=== PATIENT | male | born 1985 | race Hispanic/Latino ===

== ENCOUNTER 2021-03-27 18:47 | Inpatient (IN) | payer OTHER ==
[~2021-03-27] VITALS: Ht 170.2 cm; Wt 114.5 kg
[2021-03-27] MEDS ORDERED: ONDANSETRON 4MG INJ ONE (19:32)
[2021-03-27 19:57] LABS: BASOPHILS % (AUTO) 0.4 % (0.0-5.0); EOSINOPHILS % (AUTO) 0.1 % (0.0-8.0); HEMATOCRIT 34.3 % (42-54); LYMPHOCYTES % (AUTO) 2.5 % (21.0-51.0); MEAN CORPUSCULAR HEMOGLOBIN 30.7 pg (27.0-33.0); MEAN CORPUSCULAR HGB CONC 31.2 g/dL (32.0-36.0); MEAN CORPUSCULAR VOLUME 98.6 fL (79-99); MONOCYTES % (AUTO) 2.2 % (3.0-13.0); NEUTROPHILS % (AUTO) 94.5 % (40.0-77.0); PLATELET COUNT (AUTO) 134 K/uL (130-400); RED BLOOD CELL COUNT(AUTO) 3.48 MIL/uL (4.50-6.20); WHITE BLOOD COUNT (AUTO) 13.4 K/uL (4.8-10.8)
[2021-03-27 20:09] LABS: INR 1.26 (0.85-1.15); PROTHROMBIN TIME 13.4 SEC (9.6-11.6)
[2021-03-27 20:11] LABS: PARTIAL THROMBOPLASTIN TIME 32.6 SEC (26.3-35.5)
[2021-03-27] MEDS ORDERED: ONDANSETRON 4MG INJ IVP ONE (20:30)
[2021-03-27 20:35] LABS: ALBUMIN 2.1 g/dL (3.5-5.0); BILIRUBIN,TOTAL 1.5 mg/dL (0.2-1.0); CREATININE 6.5 mg/dL (0.5-1.5); TOTAL PROTEIN, SERUM 6.2 g/dL (6.0-8.3)
[2021-03-27 20:39] LABS: POTASSIUM 2.8 mmol/L (3.5-5.1)
[2021-03-27] MEDS ORDERED: POTASSIUM CHLORIDE 10% ELIXIR 20 MEQ/15 ML UDCUP PO ONE (21:00)
[2021-03-27] MEDS ORDERED: ERGO500093 PO (21:48)
[2021-03-27] MEDS ORDERED: FOLI0.8C PO (21:48)
[2021-03-27] MEDS ORDERED: MIDO5TAB4 PO (21:48)
[2021-03-27] MEDS ORDERED: APIX2.5T PO (21:48)
[2021-03-27] MEDS ORDERED: BALS60OI TP (21:48)
[2021-03-27] MEDS ORDERED: CALC667T8 PO (21:48)
[2021-03-27] MEDS ORDERED: ACETAMINOPHEN 325 MG TAB PO PRN (22:00)
[2021-03-27] MEDS ORDERED: VANCOMYCIN 1G VIAL IVPB ONE (22:00)
[2021-03-27] MEDS ORDERED: POTASSIUM CHLORIDE 10MEQ/100ML 100 ML IV PRN (22:00)
[2021-03-27] MEDS ORDERED: LACTATED RINGERS 1000ML 1,000 ML IV SCH (22:00)
[2021-03-27] MEDS ORDERED: NOREPINEPHRIN 4MG/NS 250ML 250 ML IV SCH (22:00)
[2021-03-27] MEDS ORDERED: LIDOCAINE HCL-MPF 1% 2ML VIAL IV PRN (22:00)
[2021-03-27] MEDS ORDERED: VANCOMYCIN 1G/250ML KIT 250 ML IV ONE ×2 (22:14→22:30)
[2021-03-28] VITALS (20 sets, daily range): BP systolic 112–135; BP diastolic 58–83
[2021-03-28 06:30] LABS: BASOPHILS % (AUTO) 0.4 % (0.0-5.0); EOSINOPHILS % (AUTO) 0.5 % (0.0-8.0); HEMATOCRIT 34.7 % (42-54); LYMPHOCYTES % (AUTO) 4.9 % (21.0-51.0); MEAN CORPUSCULAR HEMOGLOBIN 31.4 pg (27.0-33.0); MEAN CORPUSCULAR HGB CONC 31.4 g/dL (32.0-36.0); MONOCYTES % (AUTO) 3.4 % (3.0-13.0); NEUTROPHILS % (AUTO) 90.6 % (40.0-77.0); PLATELET COUNT (AUTO) 129 K/uL (130-400); RED BLOOD CELL COUNT(AUTO) 3.47 MIL/uL (4.50-6.20); RED CELL DISTRIBUTION WIDTH 20.1 % (11.0-15.5); WHITE BLOOD COUNT (AUTO) 9.4 K/uL (4.8-10.8)
[2021-03-28 06:42] LABS: CREATININE 6.9 mg/dL (0.5-1.5); MAGNESIUM 1.9 mg/dL (1.80-2.40); PHOSPHORUS 3.9 mg/dL (2.5-4.9); POTASSIUM 3.5 mmol/L (3.5-5.1)
[2021-03-28] MEDS ORDERED: 0.9%NACL 1000ML 500 ML IV SCH (08:00)
[2021-03-28 08:14] LABS: ABG BASE EXCESS -3.6 mmol/L (-2.0-3.0); ABG HCO3 21.8 mmol/L (21.0-28.0); ABG OXYGEN SATURATION 93.4 % (95.0-99.0); ABG PCO2 41 mmHg (35-48)
[2021-03-28] MEDS ORDERED: ONDANSETRON 4MG INJ ONE (08:33)
[2021-03-28] MEDS ORDERED: ZOSYN 3.375GM+NS 50ML 50 ML IV SCH (09:00)
[2021-03-28] MEDS ORDERED: HEPARIN 5,000 UNIT VIAL SQ SCH (09:00)
[2021-03-28] MEDS ORDERED: FAMOTIDINE 20MG VIAL IV SCH (09:00)
[2021-03-28] MEDS: ALBUMIN (HUMAN) 25% 50 ML IV SCH ×3 (10:00→19:10)
[2021-03-28] MEDS: MEROPENEM 1 GM VIAL IVP SCH ×2 (10:00→20:49)
[2021-03-28] MEDS ORDERED: PHARMACY COMMUNICATION MISC SCH (10:30)
[2021-03-28 11:52] LABS: APPEARANCE,URINE TURBID (CLEAR); BILIRUBIN,URINE SMALL (NEGATIVE); COLOR,URINE YELLOW (YELLOW); GLUCOSE, URINE (UA) NEGATIVE (NEGATIVE); KETONES,URINE 15 mg/dL (NEGATIVE); LEUKOCYTE ESTERASE ,URINE LARGE (NEGATIVE); NITRATE,URINE NEGATIVE (NEGATIVE); OCCULT BLOOD,URINE MODERATE (NEGATIVE); PROTEIN,URINE 100 mg/dL (NEGATIVE); UROBILINOGEN,URINE 0.2 mg/dL (0.2-1.0)
[2021-03-28 12:01] LABS: BACTERIA,URINE Many /HPF (None Seen); SQUAMOUS EPITHELIAL CELL,UR Few /HPF (0-2); WBC,URINE TNTC /HPF (0-1)
[2021-03-28] MEDS ORDERED: HEPARIN 5,000 UNIT VIAL ONE (19:57)
[2021-03-28] MEDS: MIDODRINE HCL 5 MG TABLET PO SCH (20:49)
[2021-03-29] VITALS (11 sets, daily range): BP systolic 97–128; BP diastolic 51–70
[2021-03-29 04:25] LABS: BASOPHILS % (AUTO) 0.8 % (0.0-5.0); EOSINOPHILS % (AUTO) 5.3 % (0.0-8.0); HEMATOCRIT 30.8 % (42-54); LYMPHOCYTES % (AUTO) 15.4 % (21.0-51.0); MEAN CORPUSCULAR HEMOGLOBIN 31.4 pg (27.0-33.0); MEAN CORPUSCULAR HGB CONC 31.8 g/dL (32.0-36.0); MEAN CORPUSCULAR VOLUME 98.7 fL (79-99); MONOCYTES % (AUTO) 10.9 % (3.0-13.0); NEUTROPHILS % (AUTO) 67.2 % (40.0-77.0); PLATELET COUNT (AUTO) 114 K/uL (130-400); RED BLOOD CELL COUNT(AUTO) 3.12 MIL/uL (4.50-6.20); RED CELL DISTRIBUTION WIDTH 19.5 % (11.0-15.5); WHITE BLOOD COUNT (AUTO) 5.3 K/uL (4.8-10.8)
[2021-03-29 04:44] LABS: % IRON SATURATION 55.1 % (30-44)
[2021-03-29 04:56] LABS: ALANINE AMINOTRANSFERASE 71 U/L (12-78); ALBUMIN 2.5 g/dL (3.5-5.0); ASPARTATE AMINOTRANSFERASE 92 U/L (10-37); BILIRUBIN,TOTAL 1.1 mg/dL (0.2-1.0); CARBON DIOXIDE 25 mmol/L (21-32); CHLORIDE 102 mmol/L (101-111); CREATININE 4.8 mg/dL (0.5-1.5); GAMMA GLUTAMYL TRANSFERASE 169 U/L (5-85); GLOMERULAR FILTR. RATE CALC 15 mL/min (>60); GLUCOSE,RANDOM 80 mg/dL (70-105); SODIUM SERUM 139 mmol/L (136-145); THYROID STIMULATING HORMONE 1.96 uIU/mL (0.36-3.74); TOTAL PROTEIN, SERUM 6.2 g/dL (6.0-8.3); UREA NITROGEN, BLOOD 20 mg/dL (7-18)
[2021-03-29 05:07] LABS: POTASSIUM 2.9 mmol/L (3.5-5.1)
[2021-03-29] MEDS: POTASSIUM CHLORIDE 10% ELIXIR 20 MEQ/15 ML UDCUP PO PRN ×4 (07:03→13:00)
[2021-03-29 08:13] LABS: HEPATITIS Bs ANTIGEN SCREEN P Negative (Negative)
[2021-03-29] MEDS: PANTOPRAZOLE 40 MG TAB DR PO SCH (09:07)
[2021-03-29] MEDS: MIDODRINE HCL 5 MG TABLET PO SCH ×3 (09:07→20:55)
[2021-03-29] MEDS: APIXABAN 2.5 MG TABLET PO SCH ×2 (09:07→20:55)
[2021-03-29] MEDS: MEROPENEM 1 GM VIAL IVP SCH ×2 (09:07→20:55)
[2021-03-30] VITALS (22 sets, daily range): BP systolic 88–110; BP diastolic 49–63
[2021-03-30 03:26] LABS: EOSINOPHILS % (AUTO) 6.6 % (0.0-8.0); HEMATOCRIT 30.7 % (42-54); LYMPHOCYTES % (AUTO) 21.5 % (21.0-51.0); MEAN CORPUSCULAR HEMOGLOBIN 30.7 pg (27.0-33.0); MEAN CORPUSCULAR HGB CONC 30.9 g/dL (32.0-36.0); MEAN CORPUSCULAR VOLUME 99.4 fL (79-99); NEUTROPHILS % (AUTO) 59.6 % (40.0-77.0); PLATELET COUNT (AUTO) 116 K/uL (130-400); RED BLOOD CELL COUNT(AUTO) 3.09 MIL/uL (4.50-6.20); RED CELL DISTRIBUTION WIDTH 19.9 % (11.0-15.5); WHITE BLOOD COUNT (AUTO) 6.1 K/uL (4.8-10.8)
[2021-03-30 03:44] LABS: ALBUMIN 2.3 g/dL (3.5-5.0); BILIRUBIN,TOTAL 0.8 mg/dL (0.2-1.0); CREATININE 6.1 mg/dL (0.5-1.5); POTASSIUM 3.5 mmol/L (3.5-5.1)
[2021-03-30] MEDS ORDERED: PHARMACY COMMUNICATION MISC SCH (08:30)
[2021-03-30] MEDS ORDERED: LEVOFLOXACIN 500 MG TABLET PO SCH (08:30)
[2021-03-30] MEDS: PANTOPRAZOLE 40 MG TAB DR PO SCH (08:48)
[2021-03-30] MEDS: APIXABAN 2.5 MG TABLET PO SCH ×2 (08:48→20:06)
[2021-03-30] MEDS: MIDODRINE HCL 5 MG TABLET PO SCH ×3 (08:48→20:05)
[2021-03-30] MEDS: HEPARIN 5,000 UNIT VIAL IJ PRN (13:32)
[2021-03-31] VITALS (8 sets, daily range): BP systolic 84–109; BP diastolic 45–61
[2021-03-31 04:29] LABS: BASOPHILS % (AUTO) 0.8 % (0.0-5.0); HEMATOCRIT 31.9 % (42-54); LYMPHOCYTES % (AUTO) 27.4 % (21.0-51.0); MEAN CORPUSCULAR HEMOGLOBIN 31.7 pg (27.0-33.0); MEAN CORPUSCULAR VOLUME 102.2 fL (79-99); MONOCYTES % (AUTO) 10.2 % (3.0-13.0); NEUTROPHILS % (AUTO) 50.4 % (40.0-77.0); PLATELET COUNT (AUTO) 121 K/uL (130-400); RED BLOOD CELL COUNT(AUTO) 3.12 MIL/uL (4.50-6.20); RED CELL DISTRIBUTION WIDTH 19.9 % (11.0-15.5); WHITE BLOOD COUNT (AUTO) 5.2 K/uL (4.8-10.8)
[2021-03-31 04:43] LABS: ALBUMIN 2.3 g/dL (3.5-5.0); BILIRUBIN,TOTAL 0.8 mg/dL (0.2-1.0); CREATININE 4.2 mg/dL (0.5-1.5); MAGNESIUM 1.8 mg/dL (1.80-2.40); PHOSPHORUS 3.1 mg/dL (2.5-4.9); POTASSIUM 3.4 mmol/L (3.5-5.1); TOTAL PROTEIN, SERUM 6.2 g/dL (6.0-8.3)
[2021-03-31] MEDS ORDERED: MAGNESIUM 2GM PREMIX 50ML 50 ML IV PRN (09:00)
[2021-03-31] MEDS: PANTOPRAZOLE 40 MG TAB DR PO SCH (09:03)
[2021-03-31] MEDS: APIXABAN 2.5 MG TABLET PO SCH ×2 (09:03→19:40)
[2021-03-31] MEDS: KCL 20 MEQ ERTAB PO PRN (09:03)
[2021-03-31] MEDS: MIDODRINE HCL 5 MG TABLET PO SCH ×3 (09:04→19:40)
[2021-04-01] VITALS (20 sets, daily range): BP systolic 83–113; BP diastolic 47–70
[2021-04-01 05:34] LABS: HEMATOCRIT 30.9 % (42-54); MEAN CORPUSCULAR HEMOGLOBIN 31.3 pg (27.0-33.0); MEAN CORPUSCULAR HGB CONC 31.4 g/dL (32.0-36.0); MEAN CORPUSCULAR VOLUME 99.7 fL (79-99); RED BLOOD CELL COUNT(AUTO) 3.1 MIL/uL (4.50-6.20); RED CELL DISTRIBUTION WIDTH 19.8 % (11.0-15.5); WHITE BLOOD COUNT (AUTO) 5.7 K/uL (4.8-10.8)
[2021-04-01 05:46] LABS: CREATININE 5.4 mg/dL (0.5-1.5); POTASSIUM 3.5 mmol/L (3.5-5.1)
[2021-04-01] MEDS: PANTOPRAZOLE 40 MG TAB DR PO SCH (09:23)
[2021-04-01] MEDS: APIXABAN 2.5 MG TABLET PO SCH ×2 (09:23→20:10)
[2021-04-01] MEDS: LEVOFLOXACIN 500 MG TABLET PO SCH (09:23)
[2021-04-01] MEDS: MIDODRINE HCL 5 MG TABLET PO SCH ×3 (09:24→20:10)
[2021-04-01] MEDS ORDERED: GABAPENTIN 100 MG CAPSULE ONE (14:53)
[2021-04-01] MEDS ORDERED: GABAPENTIN 100 MG CAPSULE PO SCH (15:00)
[2021-04-02] VITALS (7 sets, daily range): BP systolic 98–120; BP diastolic 46–64
[2021-04-02 06:19] LABS: BASOPHILS % (AUTO) 1.2 % (0.0-5.0); EOSINOPHILS % (AUTO) 7.6 % (0.0-8.0); HEMATOCRIT 32.6 % (42-54); LYMPHOCYTES % (AUTO) 37.8 % (21.0-51.0); MEAN CORPUSCULAR HEMOGLOBIN 30.7 pg (27.0-33.0); MEAN CORPUSCULAR HGB CONC 30.4 g/dL (32.0-36.0); MEAN CORPUSCULAR VOLUME 101.2 fL (79-99); MONOCYTES % (AUTO) 7.9 % (3.0-13.0); NEUTROPHILS % (AUTO) 45.2 % (40.0-77.0); PLATELET COUNT (AUTO) 161 K/uL (130-400); RED BLOOD CELL COUNT(AUTO) 3.22 MIL/uL (4.50-6.20); RED CELL DISTRIBUTION WIDTH 19.6 % (11.0-15.5); WHITE BLOOD COUNT (AUTO) 5.8 K/uL (4.8-10.8)
[2021-04-02 07:12] LABS: ALBUMIN 2.3 g/dL (3.5-5.0); BILIRUBIN,TOTAL 0.8 mg/dL (0.2-1.0); PHOSPHORUS 2.2 mg/dL (2.5-4.9); POTASSIUM 3.5 mmol/L (3.5-5.1)
[2021-04-02] MEDS: PANTOPRAZOLE 40 MG TAB DR PO SCH (09:03)
[2021-04-02] MEDS: MIDODRINE HCL 5 MG TABLET PO SCH ×3 (09:03→21:56)
[2021-04-02] MEDS: APIXABAN 2.5 MG TABLET PO SCH ×2 (09:04→21:56)
[2021-04-02] MEDS: KCL 20 MEQ ERTAB PO PRN ×2 (14:33→17:22)
[2021-04-03] VITALS (17 sets, daily range): BP systolic 76–130; BP diastolic 32–81
[2021-04-03 05:29] LABS: HEMATOCRIT 31.9 % (42-54); MEAN CORPUSCULAR HEMOGLOBIN 30.9 pg (27.0-33.0); MEAN CORPUSCULAR VOLUME 99.7 fL (79-99); PLATELET COUNT (AUTO) 167 K/uL (130-400); WHITE BLOOD COUNT (AUTO) 6.3 K/uL (4.8-10.8)
[2021-04-03 05:43] LABS: CREATININE 5.3 mg/dL (0.5-1.5); POTASSIUM 3.7 mmol/L (3.5-5.1)
[2021-04-03 06:24] LABS: BAND NEUTROPHILS % (MANUAL) 1 % (0-2); BASOPHILS % (MANUAL) 3 % (0-2); EOSINOPHILS % (MANUAL) 5 % (1-6); LYMPHOCYTES % (MANUAL) 37 % (22-44); MONOCYTES % (MANUAL) 3 % (2-9); SEGMENTED NEUTROPHILS % 51 % (40-70)
[2021-04-03 06:25] LABS: MAN.DIFF COMMENT-IMPRESSION MANUAL DIFFERENTIAL; PLATELET MORPHOLOGY COMMENT ADEQUATE
[2021-04-03] MEDS: PANTOPRAZOLE 40 MG TAB DR PO SCH (09:30)
[2021-04-03] MEDS: LEVOFLOXACIN 500 MG TABLET PO SCH (09:30)
[2021-04-03] MEDS: APIXABAN 2.5 MG TABLET PO SCH ×2 (09:30→21:59)
[2021-04-03] MEDS: MIDODRINE HCL 5 MG TABLET PO SCH ×3 (09:30→21:58)
[2021-04-03] MEDS ORDERED: ONDANSETRON 4MG INJ IVP PRN (10:30)
[2021-04-03] MEDS: ONDANSETRON 4MG INJ IVP PRN ×2 (10:58→10:59)
[2021-04-04] VITALS (11 sets, daily range): BP systolic 85–115; BP diastolic 46–73
[2021-04-04 05:22] LABS: HEMATOCRIT 32.9 % (42-54); MEAN CORPUSCULAR HEMOGLOBIN 31.2 pg (27.0-33.0); MEAN CORPUSCULAR VOLUME 100.6 fL (79-99); PLATELET COUNT (AUTO) 183 K/uL (130-400); RED BLOOD CELL COUNT(AUTO) 3.27 MIL/uL (4.50-6.20); RED CELL DISTRIBUTION WIDTH 18.9 % (11.0-15.5)
[2021-04-04 05:36] LABS: CREATININE 3.8 mg/dL (0.5-1.5); PHOSPHORUS 2.1 mg/dL (2.5-4.9); POTASSIUM 3.4 mmol/L (3.5-5.1)
[2021-04-04 05:39] LABS: BAND NEUTROPHILS % (MANUAL) 2 % (0-2); BASOPHILS % (MANUAL) 2 % (0-2); EOSINOPHILS % (MANUAL) 13 % (1-6); LYMPHOCYTES % (MANUAL) 31 % (22-44); MONOCYTES % (MANUAL) 4 % (2-9); SEGMENTED NEUTROPHILS % 48 % (40-70)
[2021-04-04 05:40] LABS: MAN.DIFF COMMENT-IMPRESSION MANUAL DIFFERENTIAL
[2021-04-04] MEDS: APIXABAN 2.5 MG TABLET PO SCH ×2 (09:44→21:32)
[2021-04-04] MEDS: PANTOPRAZOLE 40 MG TAB DR PO SCH (09:44)
[2021-04-04] MEDS: MIDODRINE HCL 5 MG TABLET PO SCH ×3 (09:44→21:32)
[2021-04-04] MEDS ORDERED: FLUDROCORTISONE ACETATE 0.1 MG TABLET PO SCH (17:50)
[2021-04-04] MEDS: KCL 20 MEQ ERTAB PO PRN ×2 (18:30→21:33)
[2021-04-05] VITALS (21 sets, daily range): BP systolic 89–118; BP diastolic 44–70
[2021-04-05 06:09] LABS: BASOPHILS % (AUTO) 1.3 % (0.0-5.0); LYMPHOCYTES % (AUTO) 39.4 % (21.0-51.0); MEAN CORPUSCULAR HEMOGLOBIN 30.8 pg (27.0-33.0); MEAN CORPUSCULAR HGB CONC 30.3 g/dL (32.0-36.0); MEAN CORPUSCULAR VOLUME 101.8 fL (79-99); MONOCYTES % (AUTO) 7.8 % (3.0-13.0); NEUTROPHILS % (AUTO) 45.1 % (40.0-77.0); PLATELET COUNT (AUTO) 180 K/uL (130-400); RED BLOOD CELL COUNT(AUTO) 3.34 MIL/uL (4.50-6.20); RED CELL DISTRIBUTION WIDTH 18.9 % (11.0-15.5)
[2021-04-05 06:17] LABS: CREATININE 5.2 mg/dL (0.5-1.5); POTASSIUM 3.9 mmol/L (3.5-5.1)
[2021-04-05] MEDS: PANTOPRAZOLE 40 MG TAB DR PO SCH (10:46)
[2021-04-05] MEDS: MIDODRINE HCL 5 MG TABLET PO SCH ×3 (10:46→20:51)
[2021-04-05] MEDS: LEVOFLOXACIN 500 MG TABLET PO SCH (10:46)
[2021-04-05] MEDS: FLUDROCORTISONE ACETATE 0.1 MG TABLET PO SCH (10:46)
[2021-04-05] MEDS: APIXABAN 2.5 MG TABLET PO SCH ×2 (10:46→20:52)
[2021-04-05] MEDS: HEPARIN 5,000 UNIT VIAL IJ PRN (16:11)
[2021-04-05] MEDS ORDERED: ACETAMINOPHEN 325 MG TAB PO PRN (21:00)
[2021-04-06] VITALS: BP 90/56
[2021-04-06 04:00] VITALS: BP 87/52
[2021-04-06] MEDS ORDERED: COSYNTROPIN 0.25 MG VIAL IVP SCH (04:15)
[2021-04-06 05:55] LABS: HEMATOCRIT 32.8 % (42-54); MEAN CORPUSCULAR HEMOGLOBIN 31.2 pg (27.0-33.0); MEAN CORPUSCULAR HGB CONC 31.1 g/dL (32.0-36.0); MEAN CORPUSCULAR VOLUME 100.3 fL (79-99); PLATELET COUNT (AUTO) 174 K/uL (130-400); RED BLOOD CELL COUNT(AUTO) 3.27 MIL/uL (4.50-6.20); RED CELL DISTRIBUTION WIDTH 18.6 % (11.0-15.5); WHITE BLOOD COUNT (AUTO) 5.8 K/uL (4.8-10.8)
[2021-04-06] MEDS ORDERED: MIDODRINE HCL 5 MG TABLET PO ONE (06:00)
[2021-04-06 06:33] VITALS: BP 100/48
[2021-04-06 06:37] LABS: CREATININE 3.8 mg/dL (0.5-1.5); POTASSIUM 3.9 mmol/L (3.5-5.1)
[2021-04-06 06:48] LABS: EOSINOPHILS % (MANUAL) 11 % (1-6); LYMPHOCYTES % (MANUAL) 42 % (22-44); MAN.DIFF COMMENT-IMPRESSION MANUAL DIFFERENTIAL; MONOCYTES % (MANUAL) 2 % (2-9); SEGMENTED NEUTROPHILS % 45 % (40-70)
[2021-04-06 06:49] LABS: PLATELET MORPHOLOGY COMMENT ADEQUATE
[2021-04-06 08:00] VITALS: BP 97/52
[2021-04-06] MEDS: APIXABAN 2.5 MG TABLET PO SCH (08:12)
[2021-04-06] MEDS: PANTOPRAZOLE 40 MG TAB DR PO SCH (08:12)
[2021-04-06] MEDS: FLUDROCORTISONE ACETATE 0.1 MG TABLET PO SCH (08:12)
[2021-04-06] MEDS: MIDODRINE HCL 5 MG TABLET PO SCH ×2 (08:14→15:13)
[2021-04-06] MEDS ORDERED: HYDROCORTISONE 20 MG TABLET PO SCH (09:30)
[2021-04-06 12:00] VITALS: BP 97/55
[2021-04-06] MEDS ORDERED: FLUD0.1T2 PO (16:07)
[2021-04-06] MEDS ORDERED: HYDR10TA PO (16:07)
== END 2021-04-06 19:00 | disposition home health service (06) | DRG 871 ==
LOC: EDH 18:47 → EDHIP 21:54 → 2DH 03-28 16:57 → 3BH 04-01 03:45
PROVIDERS: ADMIT Hospitalist; ATTEND Hospitalist
PROC: 5A1D70Z Performance of Urinary Filtration, Intermittent, Less than 6 Hours Per Day (ICD-10-PCS; principal; 2021-03-28)
PROC: 5A1D70Z Performance of Urinary Filtration, Intermittent, Less than 6 Hours Per Day (ICD-10-PCS; 2021-03-30)
PROC: 5A1D70Z Performance of Urinary Filtration, Intermittent, Less than 6 Hours Per Day (ICD-10-PCS; 2021-03-31)
PROC: 5A1D70Z Performance of Urinary Filtration, Intermittent, Less than 6 Hours Per Day (ICD-10-PCS; 2021-04-01)
PROC: 5A1D70Z Performance of Urinary Filtration, Intermittent, Less than 6 Hours Per Day (ICD-10-PCS; 2021-04-03)
PROC: 5A1D70Z Performance of Urinary Filtration, Intermittent, Less than 6 Hours Per Day (ICD-10-PCS; 2021-04-05)
DX: A41.9 Sepsis, unspecified organism (principal); R65.21 Severe sepsis with septic shock; N18.6 End stage renal disease; E43 Unspecified severe protein-calorie malnutrition; N39.0 Urinary tract infection, site not specified; E27.40 Unspecified adrenocortical insufficiency; I12.0 Hypertensive chronic kidney disease with stage 5 chronic kidney disease or end stage renal disease; I31.3 Pericardial effusion (noninflammatory); I38 Endocarditis, valve unspecified; D53.9 Nutritional anemia, unspecified; N47.1 Phimosis; G47.33 Obstructive sleep apnea (adult) (pediatric); E66.01 Morbid (severe) obesity due to excess calories; E11.22 Type 2 diabetes mellitus with diabetic chronic kidney disease; D63.1 Anemia in chronic kidney disease; E87.5 Hyperkalemia; B96.1 Klebsiella pneumoniae [K. pneumoniae] as the cause of diseases classified elsewhere; Z20.822 Contact with and (suspected) exposure to COVID-19; R74.8 Abnormal levels of other serum enzymes; B96.4 Proteus (mirabilis) (morganii) as the cause of diseases classified elsewhere; R53.81 Other malaise; E87.6 Hypokalemia; R62.7 Adult failure to thrive; D69.6 Thrombocytopenia, unspecified; K80.20 Calculus of gallbladder without cholecystitis without obstruction; Z68.39 Body mass index [BMI] 39.0-39.9, adult; Z99.2 Dependence on renal dialysis; Z98.84 Bariatric surgery status; Z79.01 Long term (current) use of anticoagulants; Z79.52 Long term (current) use of systemic steroids; Z79.899 Other long term (current) drug therapy; Z86.718 Personal history of other venous thrombosis and embolism; Z91.15 Patient's noncompliance with renal dialysis; Z91.19 Patient's noncompliance with other medical treatment and regimen; Z83.3 Family history of diabetes mellitus
CPT/HCPCS: 36415; 36600; 70450; 70551; 71045; 73020; 76705; 80048; 80053; 80400; 81001; 82306; 82435; 82533; 82550; 82607; 82627; 82728; 82746; 82803; 82947; 82977; 83540; 83550; 83605; 83735; 84100; 84132; 84145; 84295; 84443; 84484; 85018; 85025; 85027; 85045; 85610; 85730; 86704; 86706; 87040; 87077; 87088; 87186; 87340; 87635; 90935; 93005; 93306; 93356; 93880; 93970; 93971; 97039; G0378; J0834; J1644; J2185; J2405; J2543; J3370; J3475; J3490; J7030; P9047

== ENCOUNTER 2022-03-25 05:09 | Emergency (ER) | payer OTHER ==
[~2022-03-25] VITALS: Ht 172.7 cm; Wt 101.2 kg
[~2022-03-25 05:09] MED LIST: APIX2.5T PO; BALS60OI TP; CALC667T8 PO; ERGO500093 PO; FLUD0.1T2 PO; FOLI0.8C PO; HYDR10TA PO; MIDO5TAB4 PO
[2022-03-25 05:50] LABS: BASOPHILS % (AUTO) 1.6 % (0.0-5.0); EOSINOPHILS % (AUTO) 7.1 % (0.0-8.0); HEMATOCRIT 33.8 % (42-54); LYMPHOCYTES % (AUTO) 17.3 % (21.0-51.0); MEAN CORPUSCULAR HEMOGLOBIN 29.8 pg (27.0-33.0); MEAN CORPUSCULAR VOLUME 93.1 fL (79-99); MONOCYTES % (AUTO) 44.1 % (3.0-13.0); NEUTROPHILS % (AUTO) 10.2 % (40.0-77.0); PLATELET COUNT (AUTO) 124 K/uL (130-400); RED BLOOD CELL COUNT(AUTO) 3.63 MIL/uL (4.50-6.20); RED CELL DISTRIBUTION WIDTH 12.6 % (11.0-15.5); WHITE BLOOD COUNT (AUTO) 1.3 K/uL (4.8-10.8)
[2022-03-25 06:03] LABS: CREATININE 1.3 mg/dL (0.5-1.5); POTASSIUM 4.6 mmol/L (3.5-5.1); TOTAL PROTEIN, SERUM 6.6 g/dL (6.0-8.3)
[2022-03-25 06:08] LABS: EOSINOPHILS % (MANUAL) 12 % (1-6); LYMPHOCYTES % (MANUAL) 28 % (22-44); MONOCYTES % (MANUAL) 52 % (2-9); SEGMENTED NEUTROPHILS % 8 % (40-70)
[2022-03-25 06:09] LABS: MAN.DIFF COMMENT-IMPRESSION MANUAL DIFFERENTIAL; PLATELET MORPHOLOGY COMMENT ADEQUATE
[2022-03-25] MEDS ORDERED: MYCO500T5 PO (06:12)
[2022-03-25] MEDS ORDERED: TACR1CAP10 PO (06:12)
[2022-03-25] MEDS ORDERED: VALG450T3 PO (06:12)
[2022-03-25] MEDS ORDERED: SULF1TAB41 PO (06:12)
[2022-03-25] MEDS ORDERED: IOHEXOL 350 MG/ML 100ML INFUS..BTL IV ONE ×2 (06:29→07:42)
[2022-03-25] MEDS: 0.9%NACL 1000ML 1,000 ML IV SCH (08:34)
[2022-03-25 10:10] LABS: APPEARANCE,URINE CLEAR (CLEAR); BILIRUBIN,URINE NEGATIVE (NEGATIVE); COLOR,URINE LIGHT-YELLOW (YELLOW); GLUCOSE, URINE (UA) NEGATIVE (NEGATIVE); KETONES,URINE NEGATIVE (NEGATIVE); LEUKOCYTE ESTERASE ,URINE NEGATIVE Leu/uL (NEGATIVE); NITRATE,URINE NEGATIVE (NEGATIVE); OCCULT BLOOD,URINE NEGATIVE (NEGATIVE); PH,URINE 5.5 (5.0-8.0); PROTEIN,URINE NEGATIVE (NEGATIVE); UROBILINOGEN,URINE 0.2 mg/dL (0.2-1.0)
[2022-03-25 12:11] VITALS: BP 100/64
== END 2022-03-25 14:06 | disposition short-term general hospital (02) ==
LOC: EDH 05:09
DX: D70.9 Neutropenia, unspecified (principal); J18.9 Pneumonia, unspecified organism; Z20.822 Contact with and (suspected) exposure to COVID-19; Z79.01 Long term (current) use of anticoagulants; Z94.0 Kidney transplant status
CPT/HCPCS: 99291; 93970; 96360; 71270; 71045; 87635; 84484; 80053; 83880; 85025; 85378; 87040 ×2; 83605; 81003; 36415; 93005 ×2; C9803; J7030; Q9967